=== PATIENT | female | born 1985 | race African-American/Black ===

== ENCOUNTER 2017-02-01 20:34 | Emergency (ER) | payer OTHER ==
[~2017-02-01] VITALS: Ht 162.6 cm; Wt 227.3 kg
[2017-02-01 20:34] VITALS: Ht 162.6 cm; Wt 227.3 kg
[2017-02-01] MEDS ORDERED: NITROGLYCERIN 2% 1 GM OINT PKT TD STA (20:43)
[2017-02-01] MEDS ORDERED: morphine 4 MG/ML VIAL IV STA (20:43)
[2017-02-01] MEDS ORDERED: ASPIRIN 325 MG TAB PO STA (20:43)
[2017-02-01] MEDS ORDERED: ONDANSETRON 4 MG INJ IV STA (20:43)
[2017-02-01 20:58] LABS: ABNORMAL IP MESSAGE 1; HEMOGLOBIN 9.6 g/dl (12.0-16.0); MEAN CORPUSCULAR HEMOGLOBIN 18.6 pg (29.0-33.0); MEAN CORPUSCULAR HGB CONC 27.4 g/dl (32.0-37.0); MEAN CORPUSCULAR VOLUME 67.7 fl (82.0-101.0); PLATELET COUNT 372 10^3/UL (140-415); RED BLOOD COUNT 5.17 10^6/ul (4.20-5.40); RED CELL DISTRIBUTION WIDTH 23.7 % (11.5-14.5); WHITE BLOOD COUNT 10.1 10^3/ul (4.8-10.8)
[2017-02-01 21:04] LABS: POSITIVE DIFF @See below
[2017-02-01 21:25] LABS: INR 1.07; PROTIME 13.9 Sec (12.2-14.2); PT RATIO 1.1
[2017-02-01 21:26] LABS: PARTIAL THROMBOPLASTIN TIME 40.2 Sec (25.0-35.0)
[2017-02-01 21:29] LABS: ANION GAP 11 (8-16); BLOOD UREA NITROGEN 9 mg/dl (7-20); CALCIUM 8.8 mg/dl (8.4-10.2); CARBON DIOXIDE 33 mmol/L (21-31); CHLORIDE 99 mmol/L (97-110); CREATININE 0.52 mg/dl (0.44-1.00); GLUCOSE 108 mg/dl (70-220); POTASSIUM 3.4 mmol/L (3.5-5.1); SODIUM 140 mmol/L (135-144)
--- NOTE | 2017-02-01 21:37 | ERA ---
ER Documentation Chief Complaint Date/Time DATE: 02/01/17 TIME: 21:35 Chief Complaint Sharp left chest pain, productive cough for 4 days HPI This is a morbidly obese 31-year-old female with a history of congestive heart failure is complaining of 4 days of cough with productive yellow sputum with subjective fevers having chills and sweats. She has no shortness of breath. She states that she has some sharp left chest pain that is worse when she coughs and moves. No abdominal pain vomiting diarrhea no shortness of breath or increased work of breathing ROS All systems reviewed and are negative except as per history of present illness. Medications Home Meds Active Scripts Tramadol HCl (Tramadol HCl) 50 Mg Tablet, 50 MG PO Q6, #20 TAB Prov:SHAQUILLE DE JESUS DO 02/01/17 Albuterol Sulfate* (Proair HFA*) 8.5 Gm Hfa.aer.ad, 2 PUFF INH Q4, #1 INHALER Prov:SHAQUILLE DE JESUS DO 02/01/17 Prednisone* (Prednisone*) 20 Mg Tab, 40 MG PO DAILY for 4 Days, TAB Prov:SHAQUILLE DE JESUS DO 02/01/17 Azithromycin* (Zithromax*) 250 Mg Tablet, 250 MG PO .ZPACK DIRECTED, #6 TAB TAKE 500 MG (2 TABS) THE FIRST DAY THEN 250 MG (1 TAB) DAYS 2-5 Prov:SHAQUILLE DE JESUS DO 02/01/17 Allergies Allergies: Coded Allergies: ibuprofen (Verified Allergy, Intermediate, RASH, 02/01/17) PMhx/Soc Medical and Surgical Hx: pt denies Surgical Hx Hx Neurological Disorder: No Hx Respiratory Disorders: Yes (COPD, ASTHMA, SLEEP APNEA) Hx Cardiac Disorders: Yes (CHF, HTN, HYPERLIPIDEMIA) Hx Psychiatric Problems: Yes (BIPOLAR/DRESSION) Hx Miscellaneous Medical Probl: Yes (GOUT) Hx Alcohol Use: No Hx Substance Use: No Hx Tobacco Use: No Smoking Status: Never smoker FmHx Family History: No coronary disease Physical Exam Vitals Vital Signs Date Time Temp Pulse Resp B/P Pulse Ox O2 Delivery O2 Flow Rate FiO2 02/01/17 22:00 98.9 83 22 94/45 98 Nasal Cannula 4.0 02/01/17 20:50 Nasal Cannula 2 02/01/17 20:34 98.9 89 22 110/50 94 Physical Exam Const: Well-developed, well-nourished, morbid obesity Head: Atraumatic, normocephalic Eyes: Normal Conjunctiva, PERRLA, EOMI, normal sclera, no nystagmus ENT: Normal External Ears, Nose and Mouth, moist mucus membranes. Neck: Full range of motion. No meningismus, no lymphadenopathy. Resp: Clear to auscultation bilaterally, no wheezing, rhonchi, rales Cardio: Regular rate and rhythm, no murmurs, S1 S2 present, the left anterior chest wall has reproducible tenderness to palpation located at the sternal costal margin around rib #3 and 4. Abd: Soft, non tender x 4, non distended. Normal bowel sounds, no guarding or rebound, no pulsitile abdominal masses or bruits Skin: No petechiae or rashes, no ecchymosis , no maculopapular rash Back: No midline or flank tenderness Ext: No cyanosis, +3 edema, FROM x 4, normal inspection, neurovascularly intact x 4 Neur: Awake and alert, STR 5/5 x 4, sensation intact x 4, no focal findings, cerebellum intact Psych: Normal Mood and Affect Result Diagram: 02/01/17204702/01/172047 Results 24 hrs Laboratory Tests Test 02/01/17 20:48 White Blood Count 10.110^3/ul Red Blood Count 5.1710^6/ul Hemoglobin 9.6g/dl Hematocrit 35.0% Mean Corpuscular Volume 67.7fl Mean Corpuscular Hemoglobin 18.6pg Mean Corpuscular Hemoglobin Concent 27.4g/dl Red Cell Distribution Width 23.7% Platelet Count 80123^3/UL Mean Platelet Volume fl Segmented Neutrophils % (Manual) 65% Lymphocytes % (Manual) 26% Monocytes % (Manual) 4% Eosinophils % (Manual) 5% Nucleated Red Blood Cells % 0.0/100WBC Absolute Lymphocytes (Manual) 2.610^3/ul Lymphocytes # 2.610^3/ul Monocytes # 0.410^3/ul Absolute Monocytes (Manual) 0.410^3/ul Eosinophils # 0.510^3/ul Hypochromasia 1+ Anisocytosis 1+ Microcytosis 1+ Prothrombin Time 13.9Sec Prothrombin Time Ratio 1.1 INR International Normalized Ratio 1.07 Activated Partial Thromboplast Time 40.2Sec Sodium Level 140mmol/L Potassium Level 3.4mmol/L Chloride Level 99mmol/L Carbon Dioxide Level 33mmol/L Anion Gap 11 Blood Urea Nitrogen 9mg/dl Creatinine 0.52mg/dl Glucose Level 108mg/dl Calcium Level 8.8mg/dl Troponin I < 0.012ng/ml B-Type Natriuretic Peptide 66PG/ML Current Medications Medications (Trade) Dose Ordered Sig/Vika Route PRN Reason Start Time Stop Time Status Last Admin Dose Admin Aspirin (Aspirin) 325 mg ONCE STAT PO 02/01/17 20:43 02/01/17 20:45 DC 02/01/17 20:55 Nitroglycerin (Nitroglycerin 2% Oint) 1 inch ONCE STAT TD 02/01/17 20:43 02/01/17 20:45 DC Morphine Sulfate (morphine) 4 mg ONCE STAT IV 02/01/17 20:43 02/01/17 20:45 DC 02/01/17 20:55 Ondansetron HCl (Zofran Inj) 4 mg ONCE STAT IV 02/01/17 20:43 02/01/17 20:45 DC 02/01/17 20:54 Furosemide (Lasix) 40 mg ONCE ONCE IV 02/01/17 23:00 02/01/17 23:01 DC Procedures/MDM EKG: Rate/Rhythm: Normal sinus rhythm, RSR in lead V1 QRS, ST, QT: NORMAL CA, QRS, QT] Impression: NORMAL EKG PROCEDURE: X-ray Chest. CLINICAL INDICATION: Chest pain. TECHNIQUE: Single view chest x-ray. COMPARISON: None available. FINDINGS: The cardiomediastinal silhouette is enlarged. There is diffuse prominence of the interstitium without focal consolidation, effusion, or pneumothorax. There are no acute osseous abnormalities. IMPRESSION: 1. Cardiomegaly with findings suggestive of mild to moderate hydrostatic edema. Correlate clinically for CHF. RPTAT: HLBP .Pasha Corrales MD, Date Time Electronically viewed and signed by .Pasha Corrales MD, on 02/01/2017 22:28 .P/ CC: SHAQUILLE DE JESUS DO There is no evidence of pneumonia. The chest pain is reproducible and this is the cause of her pain. There is reproducible tenderness to palpation. Patient has a history of CHF but her BNP is normal. Chest x-ray shows some volume overload however the patient's oxygenation is adequate at 2 L which she is on every day 24 hours a day. Discharge the patient home on a Z-Marv, prednisone and albuterol inhaler. We will give her an IV dose of Lasix before she departs Departure Diagnosis: Primary Impression: Bronchitis Additional Impression: Chest wall pain Condition: Stable SHAQUILEL DE JESUS DO Feb 01, 2017 21:37
[2017-02-01 21:40] LABS: B-TYPE NATRIURETIC PEPTIDE 66 PG/ML (0-125)
[2017-02-01 21:56] LABS: TROPONIN-I < 0.012 ng/ml (0.00-0.12)
[2017-02-01 22:00] VITALS: TEMP 98.9
[2017-02-01 22:11] LABS: EOSINOPHILS # 0.5 10^3/ul (0.0-0.5); EOSINOPHILS % (M) 5 % (0.0-7.0); LYMPHOCYTES # 2.6 10^3/ul (0.8-2.9); MONOCYTE # 0.4 10^3/ul (0.3-0.9); MONOCYTES % (M) 4 % (0-11)
[2017-02-01 22:12] LABS: ANISOCYTOSIS 1+ (0-0); HYPOCHROMASIA 1+ (0-0); MICROCYTOSIS 1+ (0-0)
--- NOTE | 2017-02-01 22:28 | RADRPT ---
PROCEDURE: X-ray Chest. CLINICAL INDICATION: Chest pain. TECHNIQUE: Single view chest x-ray. COMPARISON: None available. FINDINGS: The cardiomediastinal silhouette is enlarged. There is diffuse prominence of the inters titium without focal consolidation, effusion, or pneumothorax. There are no acute osseous abnormali ties. IMPRESSION: 1. Cardiomegaly with findings suggestive of mild to moderate hydrostatic edema. Correlate clinicall y for CHF. RPTAT: HLBP .Pasha Corrales MD, Date Time Electronically viewed and signed by .Pasha Corrales MD, MD on 02/01/2017 22:28 .P/
[2017-02-01] MEDS ORDERED: FUROSEMIDE 40 MG INJ IV ONE (23:00)
[2017-02-01] MEDS ORDERED: TRAM50TA2 PO (23:12)
[2017-02-01] MEDS ORDERED: PRED20TA PO (23:12)
[2017-02-01] MEDS ORDERED: ALBU8.5H3 INH (23:12)
[2017-02-01] MEDS ORDERED: AZIT250T94 PO (23:12)
[2017-02-02] MEDS ORDERED: NALOXONE (0.4 MG/ML) INJ ONE (00:53)
[2017-02-02] MEDS ORDERED: NALOXONE (0.4 MG/ML) INJ IV ONE (01:00)
[2017-02-02 02:46] VITALS: BP 132/74; PULSE 91; RESP 17
== END 2017-02-02 06:35 | disposition home or self-care (01) ==
LOC: E/R 20:34
DX: J20.9 Acute bronchitis, unspecified (principal); I50.9 Heart failure, unspecified; J44.0 Chronic obstructive pulmonary disease with (acute) lower respiratory infection; I10 Essential (primary) hypertension
CPT/HCPCS: 36415; 71010; 80048; 83880; 84484; 85025; 85610; 85730; 96374; 96375; J1940; J2270; J2310; J2405; Z7502; Z7610